=== PATIENT | female | born 1990 | race Caucasian/White ===

== ENCOUNTER 2016-08-15 05:36 | Emergency (ER) | payer OTHER ==
[~2016-08-15] VITALS: Ht 180.3 cm; Wt 146.4 kg
[~2016-08-15 05:36] MED LIST: IBUPROFEN400 MG PO; PROZAC20 MG PO
[2016-08-15 06:45] LABS: HEMATOCRIT 42.9 % (36.0-46.0); MCH 30.8 PG (29.0-34.0); MCHC 34.3 G/DL (30.0-36.0); MCV 89.7 FL (83-99); MEAN PLAT.VOLUME 10.3 uM^3 (9.5-12.4); PLATELET COUNT 283 K/uL (156-360); RBC DIS.WIDTH-CV 12.2 % (11.8-14.6); RBC DIS.WIDTH-SD 40.2 % (39-53); RED BLOOD COUNT 4.78 M/uL (3.80-5.20); WHITE BLOOD COUNT 10.3 K/uL (4.1-10.2)
[2016-08-15 07:19] LABS: ALKALINE PHOSPHATASE 87 IU/L (3-129); ANION GAP 11 MEQ/L (2-14); CHLORIDE 104 MEQ/L (99-109); GFR ESTIMATE (CALCULATED) > 59 mL/min/; GLUCOSE 110 mg/dL (70-99); LIPASE 11 U/L (1.0-51.0); SAMPLE HEMOLYSIS CHECK 2; SAMPLE ICTERIC CHECK 0; SAMPLE LIPEMIA CHECK 0; SODIUM 138 MEQ/L (136-147); TOTAL BILIRUBIN 0.3 MG/DL (0.0-1.0); UREA NITROGEN (BUN) 10 mg/dL (9-23)
[2016-08-15 07:24] LABS: POTASSIUM ND MEQ/L (3.7-5.4)
[2016-08-15 07:55] LABS: ADD MIUA? NO; BILIRUBIN NEGATIVE; BLOOD NEGATIVE; COLOR YELLOW ((YELLOW)); GLUCOSE (STRIP) NEGATIVE; KETONES NEGATIVE; LEUKOCYTES NEGATIVE; NITRITE NEGATIVE; PROTEIN (STRIP) NEGATIVE; SPECIFIC GRAVITY 1.019 (1.000-1.030); UCUL ADDED? NO; UROBILINOGEN 0.2 MG/DL (0.2-1.0)
[2016-08-15 08:11] LABS: POTASSIUM 4.1 MEQ/L (3.7-5.4)
[2016-08-15] MEDS ORDERED: IBUPROFEN600 MG PO (09:12)
[2016-08-15 11:45] VITALS: BP 125/79
== END 2016-08-15 11:46 | disposition home or self-care (01) ==
LOC: EME 05:36
PROVIDERS: Emergency Medicine
DX: N83.201 Unspecified ovarian cyst, right side (principal)
CPT/HCPCS: 76705; 76857; 80053; 81003; 83690; 84702; 84999; 85027; 99281; 99285; J1885; J7030

== ENCOUNTER 2017-02-18 15:08 | Emergency (ER) | payer OTHER ==
[~2017-02-18] VITALS: Ht 180.3 cm; Wt 148.5 kg
[~2017-02-18 15:08] MED LIST changes: +IBUPROFEN600 MG PO
[2017-02-18 16:45] LABS: ADD MIUA? NO; BILIRUBIN NEGATIVE; BLOOD NEGATIVE; COLOR YELLOW ((YELLOW)); GLUCOSE (STRIP) NEGATIVE; KETONES NEGATIVE; LEUKOCYTES NEGATIVE; NITRITE NEGATIVE; PROTEIN (STRIP) NEGATIVE; UCUL ADDED? NO; UROBILINOGEN 0.2 MG/DL (0.2-1.0)
[2017-02-18] MEDS ORDERED: SKELAXIN800 MG PO (16:51)
[2017-02-18] MEDS ORDERED: MOTRIN800 MG PO (16:53)
[2017-02-18 17:14] VITALS: BP 153/86
== END 2017-02-18 17:22 | disposition home or self-care (01) ==
LOC: EME 15:08
PROVIDERS: Physician Assistant
DX: S39.012A Strain of muscle, fascia and tendon of lower back, initial encounter (principal); S29.012A Strain of muscle and tendon of back wall of thorax, initial encounter; X58.XXXA Exposure to other specified factors, initial encounter; Z90.710 Acquired absence of both cervix and uterus
CPT/HCPCS: 72070; 72100; 81003; 99281; 99284